=== PATIENT | male | born 1975 | race African-American/Black ===

== ENCOUNTER 2016-08-21 21:40 | Emergency (ER) | payer SELFPAY ==
[2016-08-21 21:45] VITALS: BP 132/68; PULSE 114; RESP 18; TEMP 97.5
== END 2016-08-21 22:08 | disposition home or self-care (01) ==
LOC: EC 21:40
DX: Z02.89 Encounter for other administrative examinations (principal)

== ENCOUNTER 2016-10-16 18:53 | Emergency (ER) | payer BC ==
[2016-10-16 19:41] VITALS: BP 134/71; PULSE 83; RESP 18; TEMP 98.9
--- NOTE | 2016-10-16 20:06 | ED ---
Back Pain HPI - General Chief Complaint: Back Pain/Injury Stated Complaint: lower back pain Time Seen by Provider: 10/16/16 19:44 Source: patient Limitations: no limitations - History of Present Illness Initial Comments: Patient is a 41-year-old male presenting to the emergency department with chief complaint of acute on chronic low back pain. Patient states he works 12 hour days and is doing a lot of heavy lifting and thinks that he overdid it. Patient is currently complaining of lumbar vertebral back pain exacerbated with movement relieved with rest. Patient rates pain 8 out of 10. Pain is nonradiating. No recent illness, fevers, nausea, vomiting, shortness of breath , chest pain, abdominal pain, numbness or tingling, urinary or fecal incontinence, no saddle anesthesia. Patient states she has an appointment to see Dr. Ervin next week. Treatment prior to arrival included warm heat. - Related Data Previous Rx's Medication Instructions Recorded HYDROcodone/APAP 5-325MG [[place] 1 tab PO Q4HR PRN #20 tab 10/16/16 5-325] Orphenadrine [Norflex] 100 mg PO Q12H #10 tablet.er 10/16/16 Allergies Allergy/AdvReac Type Severity Reaction Status Date / Time No Known Allergies Allergy Verified 10/16/16 19:41 Review of Systems ROS Statement: Those systems with pertinent positive or pertinent negative responses have been documented in the HPI. ROS Other: All systems not noted in ROS Statement are negative. Past Medical History Past Medical History: Hypertension Additional Past Medical History / Comment(s): back pain History of Any Multi-Drug Resistant Organisms: None Reported Additional Past Surgical History / Comment(s): right small finger surgery Past Psychological History: Anxiety Smoking Status: Current every day smoker Past Alcohol Use History: None Reported Past Drug Use History: None Reported General Exam Limitations: no limitations General appearance: alert, in no apparent distress Head exam: Present: atraumatic, normocephalic, normal inspection Eye exam: Present: normal appearance ENT exam: Present: normal exam Neck exam: Present: normal inspection, full ROM. Absent: tenderness, lymphadenopathy Respiratory exam: Present: normal lung sounds bilaterally. Absent: respiratory distress, wheezes, rales, rhonchi Cardiovascular Exam: Present: regular rate, normal rhythm, normal heart sounds. Absent: systolic murmur GI/Abdominal exam: Present: soft, normal bowel sounds. Absent: distended Extremities exam: Present: normal inspection, full ROM, normal capillary refill. Absent: tenderness Back exam: Present: muscle spasm, vertebral tenderness (Lumbar region). Absent : CVA tenderness (R), CVA tenderness (L), paraspinal tenderness, rash noted Expanded Back exam: Absent: saddle anesthesia Back exam: Negative Straight Leg Raising: Right Neurological exam: Present: alert, oriented X3, normal gait, other (No focal deficits) Psychiatric exam: Present: normal affect, normal mood Skin exam: Present: warm, dry, intact, normal color Course Vital Signs 10/16/16 19:38 Temperature 98.9 F Pulse Rate 83 Respiratory 18 Rate Blood Pressure 134/71 O2 Sat by Pulse 98 Oximetry Medical Decision Making - Medical Decision Making Acute exacerbation of chronic back pain. No red flags present. Patient given prescription short course of [place] and muscle relaxer. Patient instructed to follow-up with primary care physician. Discharge instructions and return parameters reviewed. Patient agrees with treatment plan. Disposition Clinical Impression: Acute exacerbation of chronic low back pain Disposition: HOME SELF-CARE Condition: Good Instructions: Acute Low Back Pain (ED), Chronic Back Pain (ED) Additional Instructions: Continue [place] one pill every 6 hours as needed for pain. Continue muscle relaxer as prescribed. Do not drive or operate heavy machinery when on muscle relaxers. Continue heat and ice for comfort and pain. Follow-up with primary care physician on the as directed. Follow-up with orthopedic service for persistent pain. Please return to the emergency department with any new or worsening symptoms. Prescriptions: HYDROcodone/APAP 5-325MG [[place] 5-325] 1 tab PO Q4HR PRN #20 tab PRN Reason: Pain Orphenadrine [Norflex] 100 mg PO Q12H #10 tablet.er Referrals: Antonio Ervin MD [Primary Care Provider] - 1-2 days Moody Whitley MD [STAFF PHYSICIAN] - 1-2 days Time of Disposition: 19:58
== END 2016-10-16 20:16 | disposition home or self-care (01) ==
LOC: EC 18:53
DX: G89.29 Other chronic pain (principal); M54.5 Low back pain; M62.830 Muscle spasm of back; F17.200 Nicotine dependence, unspecified, uncomplicated
CPT/HCPCS: 99283

== ENCOUNTER 2016-10-30 04:01 | Emergency (ER) | payer BC, OTHER ==
[2016-10-30 04:16] VITALS: BP 151/78; PULSE 97; RESP 20; TEMP 98.1
--- NOTE | 2016-10-30 04:47 | ED ---
Medical Clearance HPI - General Chief complaint: Medical Clearance Stated complaint: drug screen [facility] Time Seen by Provider: 10/30/16 04:24 Source: patient Mode of arrival: ambulatory - History of Present Illness Initial comments: Patient sent for employment requested drug screen, declines medical screening exam. Home medications: Previous Rx's Medication Instructions Recorded HYDROcodone/APAP 5-325MG [[place] 1 tab PO Q4HR PRN #20 tab 10/16/16 5-325] Orphenadrine [Norflex] 100 mg PO Q12H #10 tablet.er 10/16/16 Allergies/Adverse reactions: Allergies Allergy/AdvReac Type Severity Reaction Status Date / Time No Known Allergies Allergy Verified 10/30/16 04:16 Review of Systems ROS Statement: Those systems with pertinent positive or pertinent negative responses have been documented in the HPI. ROS Other: All systems not noted in ROS Statement are negative. Past Medical History Past Medical History: Hypertension Additional Past Medical History / Comment(s): back pain History of Any Multi-Drug Resistant Organisms: None Reported Additional Past Surgical History / Comment(s): right small finger surgery Past Psychological History: Anxiety Smoking Status: Current every day smoker Past Alcohol Use History: None Reported Past Drug Use History: None Reported General Exam Limitations: no limitations Course Vital Signs 10/30/16 10/30/16 04:12 04:45 Temperature 98.1 F 98.1 F Pulse Rate 97 97 Respiratory 20 20 Rate Blood Pressure 151/78 151/78 O2 Sat by Pulse 100 100 Oximetry Disposition Clinical Impression: Screening due Disposition: HOME SELF-CARE Condition: Fair Referrals: Antonio Ervin MD [Primary Care Provider] - 1-2 days
== END 2016-10-30 04:45 | disposition home or self-care (01) ==
LOC: EC 04:01
DX: Z02.89 Encounter for other administrative examinations (principal); F17.200 Nicotine dependence, unspecified, uncomplicated

== ENCOUNTER 2017-08-05 18:02 | Emergency (ER) | payer BC, OTHER ==
[2017-08-05 18:07] VITALS: BP 141/78; PULSE 78; RESP 20; TEMP 97.7
--- NOTE | 2017-08-05 19:00 | ED ---
Back Pain HPI - General Chief Complaint: Back Pain/Injury Stated Complaint: BACK PAIN Time Seen by Provider: 08/05/17 18:58 Source: patient Limitations: no limitations - Related Data Previous Rx's Medication Instructions Recorded HYDROcodone/APAP 5-325MG [[place] 1 tab PO Q4HR PRN #20 tab 10/16/16 5-325] Orphenadrine [Norflex] 100 mg PO Q12H #10 tablet.er 10/16/16 Allergies Allergy/AdvReac Type Severity Reaction Status Date / Time No Known Allergies Allergy Verified 08/05/17 18:07 Review of Systems ROS Statement: Those systems with pertinent positive or pertinent negative responses have been documented in the HPI. ROS Other: All systems not noted in ROS Statement are negative. Past Medical History Past Medical History: Hypertension Additional Past Medical History / Comment(s): back pain History of Any Multi-Drug Resistant Organisms: None Reported Additional Past Surgical History / Comment(s): right small finger surgery Past Psychological History: Anxiety Smoking Status: Former smoker Past Alcohol Use History: None Reported Past Drug Use History: None Reported General Exam Limitations: no limitations Course Vital Signs 08/05/17 18:05 Temperature 97.7 F Pulse Rate 78 Respiratory 20 Rate Blood Pressure 141/78 O2 Sat by Pulse 99 Oximetry Disposition Referrals: None,Stated [Primary Care Provider] - 1-2 days
--- NOTE | 2017-08-05 19:50 | ED ---
General Adult HPI - General Chief complaint: Back Pain/Injury Stated complaint: BACK PAIN Time Seen by Provider: 08/05/17 18:58 Source: patient, RN notes reviewed Mode of arrival: ambulatory Limitations: no limitations - History of Present Illness Initial comments: 42-year-old male presents to the emergency department for a chief complaint of low back pain. Patient states this started about 3 weeks ago. Patient denies any injuries. He states this is similar to past episodes of back pain which occur about every 3-6 months. Patient denies any bladder or bowel changes. Patient denies any saddle anesthesia. Patient denies any numbness or tingling in his extremities. Patient has been taking Motrin 800 and Tylenol with minimal relief. He states he works standing up and work is now difficult for him. Patient has no problem walking. Patient has no other complaints at this time including shortness of breath, chest pain, abdominal pain, nausea or vomiting, headache, or visual changes. - Related Data Previous Rx's Medication Instructions Recorded Cyclobenzaprine [Flexeril] 5 mg PO TID #10 tablet 08/05/17 HYDROcodone/APAP 5-325MG [[place] 1 tab PO Q6HR PRN #10 tab 08/05/17 5-325] Allergies Allergy/AdvReac Type Severity Reaction Status Date / Time No Known Allergies Allergy Verified 08/05/17 19:20 Review of Systems ROS Statement: Those systems with pertinent positive or pertinent negative responses have been documented in the HPI. ROS Other: All systems not noted in ROS Statement are negative. Past Medical History Past Medical History: Hypertension Additional Past Medical History / Comment(s): back pain History of Any Multi-Drug Resistant Organisms: None Reported Additional Past Surgical History / Comment(s): right small finger surgery Past Psychological History: Anxiety Smoking Status: Former smoker Past Alcohol Use History: None Reported Past Drug Use History: None Reported General Exam Limitations: no limitations General appearance: alert, in no apparent distress Respiratory exam: Present: normal lung sounds bilaterally. Absent: respiratory distress, wheezes, rales, rhonchi, stridor Cardiovascular Exam: Present: regular rate, normal rhythm, normal heart sounds. Absent: systolic murmur, diastolic murmur, rubs, gallop, clicks Back exam: Present: paraspinal tenderness (Right sided lumbar paraspinal tenderness.). Absent: full ROM (Patient has about 20 flexion and 15 extension. Patient is able to twist bilaterally.), CVA tenderness (R), CVA tenderness (L), vertebral tenderness (No tenderness to the lumbar spine) Neurological exam: Present: alert Course Vital Signs 08/05/17 18:05 Temperature 97.7 F Pulse Rate 78 Respiratory 20 Rate Blood Pressure 141/78 O2 Sat by Pulse 99 Oximetry Medical Decision Making - Medical Decision Making 42-year-old male presents to the emergency department for a chief complaint of back pain 3 weeks. No injuries. This is similar to past back pain episodes which occur every 3-6 months. Patient has had x-rays in the past. Patient denies any bladder or bowel changes or saddle anesthesia. No numbness or tingling in the legs. On exam patient has limited flexion and extension of the lumbar spine. No tenderness to the lumbar spine. Patient states he would like something for pain as he has tried Motrin and Tylenol. Patient was given less than 3 days worth of [place] and Flexeril. He was educated not to drive or work with machinery while taking these. He was educated to take Motrin during his workday. He will return to the emergency department if he has any worsening symptoms. He will follow up with primary care in 1-2 days otherwise. Disposition Clinical Impression: Mechanical back pain Disposition: HOME SELF-CARE Condition: Good Instructions: Acute Low Back Pain (ED) Additional Instructions: Please take Motrin during the day for pain relief. You may take [place] and Flexeril at night when you are not working. Do not take [place] or Flexeril if you're driving or operating machinery. Return to the emergency department if symptoms worsen. Otherwise follow-up with primary care in 1-2 days. Prescriptions: Cyclobenzaprine [Flexeril] 5 mg PO TID #10 tablet HYDROcodone/APAP 5-325MG [[place] 5-325] 1 tab PO Q6HR PRN #10 tab PRN Reason: Pain Is patient prescribed a controlled substance at d/c from ED?: No Referrals: None,Stated [Primary Care Provider] - 1-2 days Antonio Ervin MD [STAFF PHYSICIAN] - 1-2 days Time of Disposition: 19:40
== END 2017-08-05 19:54 | disposition home or self-care (01) ==
LOC: EC 18:02
DX: M54.5 Low back pain (principal); Z87.891 Personal history of nicotine dependence
CPT/HCPCS: 99283

== ENCOUNTER 2019-06-06 10:30 | Emergency (ER) | payer BC, OTHER ==
[2019-06-06 10:42] VITALS: RESP 18; TEMP 98.3
[2019-06-06] MEDS ORDERED: IPRATROPIUM-ALBUTEROL 3 ML NEB INHALATION STA (11:24)
--- NOTE | 2019-06-06 11:34 | ED ---
Fever HPI - General Chief Complaint: Fever Stated Complaint: fever, headache Time Seen by Provider: 06/06/19 11:03 Source: patient, RN notes reviewed, old records reviewed Mode of arrival: ambulatory Limitations: no limitations - History of Present Illness Initial Comments: This Patient is a 44-year-old male presents with cough congestion and intermitte nt fevers for the past 4 days. Patient states that he's had TheraFlu [id number] treatment. Denies any history of sick contacts is aware of the sinuses cousin who is also suffering from a cough at this time. Patient states that he is a smoker. He reports he's had no appetite or desire to smoke for the past few days. - Related Data Previous Rx's Medication Instructions Recorded Cyclobenzaprine [Flexeril] 5 mg PO TID #10 tablet 08/05/17 HYDROcodone/APAP 5-325MG [[place] 1 tab PO Q6HR PRN #10 tab 08/05/17 5-325] Acetaminophen Tab [Tylenol Tab] 500 mg PO Q4H #20 tablet 06/06/19 Albuterol Inhaler [Ventolin Hfa 1 - 2 puff INHALATION RT-Q6H PRN 06/06/19 Inhaler] #1 inhaler methylPREDNISolone Dose Pack 4 mg PO DIRECTED #21 package 06/06/19 [Medrol Dose Pack] Allergies Allergy/AdvReac Type Severity Reaction Status Date / Time No Known Allergies Allergy Verified 06/06/19 10:43 Review of Systems ROS Statement: Those systems with pertinent positive or pertinent negative responses have been documented in the HPI. ROS Other: All systems not noted in ROS Statement are negative. Past Medical History Past Medical History: Hypertension Additional Past Medical History / Comment(s): back pain History of Any Multi-Drug Resistant Organisms: None Reported Additional Past Surgical History / Comment(s): right small finger surgery Past Psychological History: Anxiety Smoking Status: Current every day smoker Past Alcohol Use History: None Reported Past Drug Use History: None Reported General Exam - General Exam Comments Initial Comments: 44-year-old male. Alert and oriented. No distress. Limitations: no limitations General appearance: alert, in no apparent distress Head exam: Present: atraumatic, normocephalic, normal inspection Eye exam: Present: normal appearance, PERRL, EOMI. Absent: scleral icterus, conjunctival injection, periorbital swelling ENT exam: Present: normal exam, mucous membranes moist Neck exam: Present: normal inspection. Absent: tenderness, meningismus, lymp hadenopathy Respiratory exam: Present: normal lung sounds bilaterally. Absent: respiratory distress, wheezes, rales, rhonchi, stridor Cardiovascular Exam: Present: regular rate, normal rhythm, normal heart sounds. Absent: systolic murmur, diastolic murmur, rubs, gallop, clicks GI/Abdominal exam: Present: soft, normal bowel sounds. Absent: distended, tenderness, guarding, rebound, rigid Extremities exam: Present: normal inspection, full ROM, normal capillary refill. Absent: tenderness, pedal edema, joint swelling, calf tenderness Back exam: Present: normal inspection Neurological exam: Present: alert, oriented X3, CN II-XII intact Psychiatric exam: Present: normal affect, normal mood Skin exam: Present: warm, dry, intact, normal color. Absent: rash Course Vital Signs 06/06/19 06/06/19 06/06/19 10:40 11:50 11:59 Temperature 98.3 F Pulse Rate 78 76 84 Respiratory 18 Rate Blood Pressure 149/77 O2 Sat by Pulse 99 Oximetry Medical Decision Making - Medical Decision Making 44-year-old male presents for service with fever cough congestion for 4 days. Patient appears in no significant distress. He was given DuoNeb for minor wheeze. Patient's chest x-ray shows no focal pneumonia but. Bronchial cuffing concern for bronchitis. He is positive for influenza A. He's had symptoms for 4 days to discuss no benefit from Tamiflu at this time. Discussed symptomatic treatment with inhalers and steroids. Discussed the importance of smoking cessation for greater than 3 minutes. Discussed return parameters. - Lab Data Lab Results 06/06/19 Range/Units 11:12 Influenza Type A RNA Detected H (Not Detectd) Influenza Type B (PCR) Not Detected (Not Detectd) - Radiology Data Radiology results: report reviewed Chest x-ray shows no focal consolidation to suggest pneumonia. Central peribronchial cuffing. Consider bronchitis or reactive airway disease. Disposition Clinical Impression: Influenza A, Bronchitis Disposition: HOME SELF-CARE Condition: Good Instructions (If sedation given, give patient instructions): Influenza (ED) Additional Instructions: Patient advised to use [id number] cough cold medication such as TheraFlu. Uses steroids and inhaler as directed. Stop smoking. Prescriptions: methylPREDNISolone Dose Pack [Medrol Dose Pack] 4 mg PO DIRECTED #21 package Acetaminophen Tab [Tylenol Tab] 500 mg PO Q4H #20 tablet Albuterol Inhaler [Ventolin Hfa Inhaler] 1 - 2 puff INHALATION RT-Q6H PRN #1 inhaler PRN Reason: Shortness Of Breath Is patient prescribed a controlled substance at d/c from ED?: No Referrals: None,Stated [Primary Care Provider] - 1-2 days Sam Diggs MD [REFERRING] - 1-2 days Time of Disposition: 12:09
--- NOTE | 2019-06-06 11:48 | XR ---
EXAMINATION TYPE: XR chest 2V DATE OF EXAM: 06/06/2019 COMPARISON: 12/14/2018 HISTORY: Cough, congestion, fever for 4 days TECHNIQUE: Frontal and lateral views of the chest are obtained. FINDINGS: There is no focal air space opacity, pleural effusion, or pneumothorax seen. Central perib ronchial cuffing is present. The cardiac silhouette size is within normal limits. The osseous struc tures are intact. IMPRESSION: No focal consolidation to suggest pneumonia. Central peribronchial cuffing. Consider bro nchitis or reactive airway disease.
[2019-06-06 12:30] VITALS: BP 144/83; PULSE 80
== END 2019-06-06 12:30 | disposition home or self-care (01) ==
LOC: EC 10:30
DX: J10.1 Influenza due to other identified influenza virus with other respiratory manifestations (principal); J40 Bronchitis, not specified as acute or chronic; Z71.6 Tobacco abuse counseling; I10 Essential (primary) hypertension; F17.200 Nicotine dependence, unspecified, uncomplicated
CPT/HCPCS: 71046; 87502; 94640; 99284; 99406